=== PATIENT | female | born 2000 | race Hispanic/Latino ===

== ENCOUNTER 2018-03-12 06:32 | Emergency (ER) | payer SELFPAY ==
[~2018-03-12] VITALS: Ht 167.6 cm; Wt 102.0 kg
[2018-03-12] MEDS ORDERED: ULTRAM50 M1 PO (06:53)
[2018-03-12] MEDS ORDERED: AMOXICILLIN/PO500 MG PO (06:53)
[2018-03-12] MEDS ORDERED: FLOXIN OTIC0.3 % AS (06:53)
[2018-03-12 07:03] VITALS: BP 110/77
== END 2018-03-12 07:09 | disposition home or self-care (01) | DRG 153 ==
LOC: ED 06:32
DX: H66.92 Otitis media, unspecified, left ear (principal); H92.02 Otalgia, left ear

== ENCOUNTER 2018-03-16 00:45 | Emergency (ER) | payer SELFPAY ==
[~2018-03-16] VITALS: Ht 167.6 cm; Wt 91.0 kg
[~2018-03-16 00:45] MED LIST: AMOXICILLIN/PO500 MG PO; FLOXIN OTIC0.3 % AS; ULTRAM50 M1 PO
[2018-03-16] MEDS ORDERED: CIPROFLOXACN500 MG PO (01:24)
[2018-03-16] MEDS ORDERED: PERCOCET 5/325M1 TAB PO (01:24)
[2018-03-16] MEDS ORDERED: ACETIC ACID2 % OT (01:25)
[2018-03-16 01:38] VITALS: BP 122/78
== END 2018-03-16 01:38 | disposition home or self-care (01) | DRG 153 ==
LOC: ED 00:45
DX: H66.92 Otitis media, unspecified, left ear (principal); H60.92 Unspecified otitis externa, left ear; H92.02 Otalgia, left ear

== ENCOUNTER 2018-12-22 06:57 | Emergency (ER) | payer SELFPAY ==
[~2018-12-22] VITALS: Ht 170.2 cm; Wt 100.0 kg
[~2018-12-22 06:57] MED LIST changes: +ACETIC ACID2 % OT; +CIPROFLOXACN500 MG PO; +PERCOCET 5/325M1 TAB PO
[2018-12-22 07:34] LABS: HEMATOCRIT 39.9 % (37.0-47.0); HEMOGLOBIN 12.8 g/dl (12.0-16.0); IMMATURE GRANULOCYTES 0.4 % (0.0-5.0); MEAN CELL VOLUME 85.1 fL CALC (80.0-100.0); MEAN CORPUSCULAR HGB 27.3 pG CALC (26.0-32.0); MEAN CORPUSCULAR HGB CONC 32.1 g/L CALC (32.0-36.0); NEUT# 6.32 thou/uL (2.00-7.15); RED BLOOD COUNT 4.69 mill/uL (4.20-5.60); RED CELL DISTRI WIDTH 13.3 % (11.5-15.5)
[2018-12-22 07:44] LABS: ALBUMIN 4.3 g/dL (3.2-5.0); ALKALINE PHOSPHATASE 104 u/l (38-126); ANION GAP 12 (6-22 (CALC)); BILIRUBIN, TOTAL 0.4 mg/dL (0.0-1.4); BUN 13 mg/dL (7-17); BUN/CREATININE RATIO 21 (12-20 (CALC)); CARBON DIOXIDE 26 mmol/l (22-30); CHLORIDE 108 mmol/l (95-108); CREATININE 0.6 mg/dL (0.5-1.0); GFR > 60 ML/MIN (>=60 (CALC)); GFR FOR AFR.AMER. > 60 ML/MIN (>=60 (CALC)); LIPASE 117 u/l (23-300); SGOT/AST 50 u/l (14-36); SODIUM 141 mmol/l (137-146); TOTAL PROTEIN 8.1 g/dL (6.3-8.2)
[2018-12-22] MEDS ORDERED: DROSPIRENONE PO (08:43)
[2018-12-22] MEDS ORDERED: [UNRECOGNIZED DRUG - OTHER] PO (08:43)
[2018-12-22 09:32] LABS: URINE BILIRUBIN - DIPSTICK NEGATIVE (NEGATIVE); URINE BLOOD DIPSTICK NEGATIVE (NEGATIVE); URINE COLOR YELLOW; URINE GLUCOSE - DIPSTICK NEGATIVE (NEGATIVE); URINE KETONE NEGATIVE (NEGATIVE); URINE LEUK ESTERASE NEGATIVE (NEGATIVE); URINE NITRITE - DIPSTICK NEGATIVE (Negative); URINE PROTEIN - DIPSTICK NEGATIVE (NEG-TRACE); URINE UROBILINOGEN - DIPSTICK 0.2 E.U./dL (0.2)
[2018-12-22] MEDS ORDERED: ONDANSETRON4 MG PO (09:37)
[2018-12-22 09:52] VITALS: BP 120/74
== END 2018-12-22 10:00 | disposition home or self-care (01) | DRG 392 ==
LOC: ED 06:57
PROVIDERS: Family Medicine
DX: R10.9 Unspecified abdominal pain (principal); K76.0 Fatty (change of) liver, not elsewhere classified

== ENCOUNTER 2019-02-18 19:27 | Emergency (ER) | payer SELFPAY ==
[~2019-02-18] VITALS: Ht 170.2 cm; Wt 104.5 kg
[~2019-02-18 19:27] MED LIST changes: +DROSPIRENONE PO; +ONDANSETRON4 MG PO; +[UNRECOGNIZED DRUG - OTHER] PO
[2019-02-18] MEDS ORDERED: LOTRISONE EX (20:19)
[2019-02-18 20:25] VITALS: BP 135/87
== END 2019-02-18 20:25 | disposition home or self-care (01) | DRG 759 ==
LOC: ED 19:27
DX: B37.3 Candidiasis of vulva and vagina (principal)

== ENCOUNTER 2019-04-02 10:39 | Emergency (ER) | payer SELFPAY ==
[~2019-04-02] VITALS: Ht 170.2 cm; Wt 120.0 kg
[~2019-04-02 10:39] MED LIST changes: +LOTRISONE EX
[2019-04-02 11:29] LABS: HEMATOCRIT 42.3 % (37.0-47.0); HEMOGLOBIN 13.4 g/dl (12.0-16.0); IMMATURE GRANULOCYTES 0.6 % (0.0-5.0); MEAN CELL VOLUME 84.4 fL CALC (80.0-100.0); MEAN CORPUSCULAR HGB 26.7 pG CALC (26.0-32.0); MEAN CORPUSCULAR HGB CONC 31.7 g/L CALC (32.0-36.0); NEUT# 8.33 thou/uL (2.00-7.15); RED BLOOD COUNT 5.01 mill/uL (4.20-5.60); RED CELL DISTRI WIDTH 14.6 % (11.5-15.5)
[2019-04-02 11:47] LABS: ANION GAP 14 (6-22 (CALC)); BUN 14 mg/dL (7-17); BUN/CREATININE RATIO 23 (12-20 (CALC)); CARBON DIOXIDE 25 mmol/l (22-30); CHLORIDE 104 mmol/l (95-108); CREATININE 0.6 mg/dL (0.5-1.0); GFR > 60 ML/MIN (>=60 (CALC)); GFR FOR AFR.AMER. > 60 ML/MIN (>=60 (CALC)); POTASSIUM 4.5 mmol/l (3.5-5.1); SODIUM 138 mmol/l (137-146)
[2019-04-02 12:56] VITALS: BP 147/79
== END 2019-04-02 13:03 | disposition home or self-care (01) | DRG 313 ==
LOC: ED 10:39
PROVIDERS: Family Medicine
DX: R07.9 Chest pain, unspecified (principal); R06.02 Shortness of breath

== ENCOUNTER 2019-06-09 14:43 | Emergency (ER) | payer SELFPAY ==
[2019-06-09 14:59] VITALS: BP 134/95
== END 2019-06-09 17:50 | disposition left against medical advice (07) | DRG 951 ==
LOC: ED 14:43 → LWOBS 17:33 → ED 17:33 → LWOBS 17:50
DX: Z53.21 Procedure and treatment not carried out due to patient leaving prior to being seen by health care provider (principal)

== ENCOUNTER 2019-11-06 18:19 | Emergency (ER) | payer BC ==
[~2019-11-06] VITALS: Ht 170.2 cm; Wt 113.0 kg
[2019-11-06 21:20] VITALS: BP 120/72
== END 2019-11-06 21:21 | disposition home or self-care (01) | DRG 951 ==
LOC: ED 18:19
DX: Z20.828 Contact with and (suspected) exposure to other viral communicable diseases (principal)

== ENCOUNTER 2020-03-29 11:22 | Emergency (ER) | payer BC ==
[~2020-03-29] VITALS: Ht 170.2 cm; Wt 113.6 kg
[2020-03-29] MEDS ORDERED: AMOXICILLIN875 MG PO (14:22)
[2020-03-29 14:29] VITALS: BP 124/64
--- NOTE | 2020-03-31 10:33 | NUR ---
Notified patient of positive Covid results. Patients states she has had fever in last 24 hours. Patient denies SOB or dyspnea. Advised patient to quarantine at home until contacted by [facility] with further information. Advised patient to return to ED with SOB, difficulty breathing or other urgent needs.
== END 2020-03-29 14:29 | disposition home or self-care (01) | DRG 179 ==
LOC: ED 11:22
DX: U07.1 COVID-19 (principal); R50.9 Fever, unspecified; J02.0 Streptococcal pharyngitis

== ENCOUNTER 2020-06-07 09:11 | Emergency (ER) | payer BC ==
[~2020-06-07] VITALS: Ht 170.2 cm; Wt 118.0 kg
[~2020-06-07 09:11] MED LIST changes: +AMOXICILLIN875 MG PO
[2020-06-07 10:09] LABS: HEMATOCRIT 43.9 % (37.0-47.0); IMMATURE GRANULOCYTES 0.4 % (0.0-5.0); MEAN CELL VOLUME 85.6 fL CALC (80.0-100.0); MEAN CORPUSCULAR HGB 27.3 pG CALC (26.0-32.0); MEAN CORPUSCULAR HGB CONC 31.9 g/dL CAL (32.0-36.0); NEUT# 6.79 thou/uL (2.00-7.15); RED BLOOD COUNT 5.13 mill/uL (4.20-5.60); RED CELL DISTRI WIDTH 13.3 % (11.5-15.5)
[2020-06-07 10:22] LABS: ALBUMIN 4.3 g/dL (3.2-5.0); ALKALINE PHOSPHATASE 98 u/l (38-126); ANION GAP 14 (6-22 (CALC)); BILIRUBIN, TOTAL 0.3 mg/dL (0.0-1.4); BUN 13 mg/dL (7-17); BUN/CREATININE RATIO 20 (12-20 (CALC)); CARBON DIOXIDE 26 mmol/l (22-30); CHLORIDE 102 mmol/l (95-108); CREATININE 0.6 mg/dL (0.5-1.0); GFR > 60 ML/MIN (>=60 (CALC)); GFR FOR AFR.AMER. > 60 ML/MIN (>=60 (CALC)); POTASSIUM 4.2 mmol/l (3.5-5.1); SGOT/AST 46 u/l (14-36); SODIUM 137 mmol/l (137-146); TOTAL PROTEIN 8.1 g/dL (6.3-8.2)
[2020-06-07 10:46] LABS: URINE BILIRUBIN - DIPSTICK NEGATIVE (NEGATIVE); URINE BLOOD DIPSTICK LARGE (NEGATIVE); URINE COLOR YELLOW; URINE GLUCOSE - DIPSTICK NEGATIVE (NEGATIVE); URINE KETONE NEGATIVE (NEGATIVE); URINE LEUK ESTERASE NEGATIVE (NEGATIVE); URINE PH 5.5 (4.5-8.0); URINE PROTEIN - DIPSTICK NEGATIVE (NEG-TRACE); URINE SPECIFIC GRAVITY >=1.030; URINE UROBILINOGEN - DIPSTICK 0.2 E.U./dL (0.2)
[2020-06-07 10:47] LABS: URINE NITRITE - DIPSTICK POSITIVE (Negative)
[2020-06-07 10:48] LABS: URINE EPITHELIAL CELLS MODERATE EPI/hpf (0-FEW); URINE WBC 0-2 WBC/hpf (0-5)
[2020-06-07 10:49] LABS: URINE BACTERIA FEW hpf
[2020-06-07 11:20] VITALS: BP 118/60
== END 2020-06-07 11:20 | disposition home or self-care (01) | DRG 761 ==
LOC: ED 09:11
PROVIDERS: Family Medicine
DX: N93.9 Abnormal uterine and vaginal bleeding, unspecified (principal)

== ENCOUNTER 2022-05-18 15:33 | Emergency (ER) | payer SELFPAY | END 2022-05-18 17:32 | disposition left against medical advice (07) | DRG 951 | LOC: ED 15:33 → LWOBS 16:34 | DX: Z53.21 Procedure and treatment not carried out due to patient leaving prior to being seen by health care provider (principal) ==

== ENCOUNTER 2022-12-12 18:35 | Emergency (ER) | payer SELFPAY ==
[~2022-12-12] VITALS: Ht 170.2 cm; Wt 122.0 kg
[2022-12-12 19:25] VITALS: BP 132/83
[2022-12-12 20:13] LABS: URINE COLOR YELLOW
[2022-12-12 20:14] LABS: URINE BILIRUBIN - DIPSTICK NEGATIVE (NEGATIVE); URINE BLOOD DIPSTICK MODERATE (NEGATIVE); URINE GLUCOSE - DIPSTICK 500 mg/dL (NEGATIVE); URINE KETONE 40 mg/dL (NEGATIVE); URINE LEUK ESTERASE NEGATIVE (NEGATIVE); URINE NITRITE - DIPSTICK NEGATIVE (Negative); URINE PH 5.5 (4.5-8.0); URINE PROTEIN - DIPSTICK NEGATIVE (NEG-TRACE); URINE SPECIFIC GRAVITY 1.015; URINE UROBILINOGEN - DIPSTICK 0.2 E.U./dL (0.2)
[2022-12-12 20:27] LABS: BASO% 0.4 % (0-3); EOS% 0.5 % (0-8); HEMATOCRIT 43.5 % (37.0-47.0); HEMOGLOBIN 14.1 g/dl (12.0-16.0); LYMPH% 29.8 % (15-41); MEAN CORPUSCULAR HGB 26.9 pG CALC (26.0-32.0); MEAN CORPUSCULAR HGB CONC 32.4 g/dL CAL (32.0-36.0); MONO% 4.5 % (2-13); NEUT# 7.86 thou/uL (2.00-7.15); NEUT% 64.8 % (42-76); RED BLOOD COUNT 5.24 mill/uL (4.20-5.60); RED CELL DISTRI WIDTH 12.9 % (11.5-15.5)
[2022-12-12 20:27] LABS: URINE SQUAMOUS EPITHELIAL CELL FEW EPI/hpf (0-FEW); URINE WBC 0-2 WBC/hpf (0-5)
[2022-12-12 20:44] LABS: ALBUMIN 4.3 g/dL (3.2-5.0); ALKALINE PHOSPHATASE 101 u/l (38-126); ANION GAP 16 (6-22 (CALC)); BUN 13 mg/dL (7-17); BUN/CREATININE RATIO 18 (12-20 (CALC)); CARBON DIOXIDE 22 mmol/l (22-30); CHLORIDE 98 mmol/l (95-108); CREATININE 0.7 mg/dL (0.5-1.0); GFR FOR AFR.AMER. > 60 ML/MIN (>=60 (CALC)); GFR OTHER RACES > 60 ML/MIN (>=60 (CALC)); LIPASE 197 u/l (23-300); SODIUM 132 mmol/l (137-146)
[2022-12-12 20:49] LABS: BILIRUBIN, TOTAL 0.7 mg/dL (0.02-1.3); SGOT/AST 101 u/l (14-36)
[2022-12-12] MEDS ORDERED: CIPROFLOXACN500 MG PO (22:57)
[2022-12-12] MEDS ORDERED: METFORMIN HCL500 M2 PO (22:57)
[2022-12-12 23:40] VITALS: BP 132/83
== END 2022-12-12 23:40 | disposition home or self-care (01) | DRG 690 ==
LOC: ED 18:35
PROVIDERS: Nurse Practitioner
DX: N30.90 Cystitis, unspecified without hematuria (principal); R73.9 Hyperglycemia, unspecified; R74.8 Abnormal levels of other serum enzymes; Z87.440 Personal history of urinary (tract) infections